=== PATIENT | male | born 1960 | race Caucasian/White ===

== ENCOUNTER 2020-03-18 03:48 | Outpatient (CLI) | payer OTHER, SELFPAY ==
[2020-03-18 08:55] LABS: Absolute Basophil Count 0.03 k/cumm (0.0-0.2); Absolute Eosinophil Count 0.13 k/cumm (0.0-0.7); Absolute Lymphocyte Count 1.16 k/cumm (1.2-3.4); Absolute Monocyte Count 0.44 k/cumm (0.11-0.7); Absolute Neutrophil Count 1.69 k/cumm (1.2-6.7); Basophils % 0.9; Eosinophils % 3.8; HCT 42.2 % (40.0-50.0); HGB 14.1 g/dL (13.5-17.5); Lymphocytes % 33.6; Mean Corp. HGB Concentration 33.4 g/dL (32.0-36.0); Mean Corpuscular Hemoglobin 29.6 pg (27.0-33.0); Mean Corpuscular Volume 88.7 fL (80-95); Mean Platelet Volume 10.8 fL (8.0-11.0); Monocytes % 12.8; Neutrophils % 48.9; Platelet Count 180 x1000/uL (130-400); RBC 4.76 m/cumm (4.50-6.00); White Blood Cell Count 3.45 k/cumm (4.4-10.8)
[2020-03-18 09:13] LABS: Hemoglobin A1C 5.4 % (3.8-5.6)
[2020-03-18 09:59] LABS: ALT 25 U/L (16-63); AST 18 U/L (15-37); Alkaline Phosphatase 55 U/L (46-116); Anion Gap 5.1 mmol/L (3-11); BUN 20 mg/dL (7-18); Bilirubin, Total 0.7 mg/dL (0.2-1.0); CO2 28.9 mmol/L (21.0-32.0); CREATININE 0.87 mg/dL (0.70-1.30); Calcium 8.6 mg/dL (8.5-10.1); Calculated LDL 69 mg/dL (<100); Chloride 105 mmol/L (98-107); Cholesterol 129 mg/dL (<200); Glucose 94 mg/dL (74-106); HDL Cholesterol 48 mg/dL (40-60); Potassium 4.5 mmol/L (3.5-5.1); Sodium 139 mmol/L (136-145); Total Protein 6.4 g/dL (6.4-8.2); Triglyceride 61 mg/dL (<150)
[2020-03-18 19:00] LABS: Vitamin D 25 Total 89.5 ng/ml (30-100)
== END 2020-03-18 04:08 ==
PROVIDERS: PCP Physician Assistant; Visit Provider Physician Assistant
DX: Z00.00 Encounter for general adult medical examination without abnormal findings (principal); E55.9 Vitamin D deficiency, unspecified; R73.9 Hyperglycemia, unspecified; E78.5 Hyperlipidemia, unspecified
CPT/HCPCS: 36415; 80053; 80061; 82306; 83036; 85025

== ENCOUNTER 2020-07-04 17:45 | Emergency (ER) | payer OTHER, SELFPAY ==
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
[2020-07-04 17:49] VITALS: BP 138/112; PULSE 81; RESP 18; TEMP 36.6; O2SAT 99
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
[2020-07-04 18:59] VITALS: BP 135/99; PULSE 81; RESP 18; TEMP 36.6; O2SAT 99
== END 2020-07-04 19:00 | disposition home or self-care (01) ==
PROVIDERS: Emergency Provider Student in an Organized Health Care Education/Training Program; PCP Physician Assistant
DX: S20.211A Contusion of right front wall of thorax, initial encounter (principal); S50.01XA Contusion of right elbow, initial encounter; Y04.2XXA Assault by strike against or bumped into by another person, initial encounter; Y99.0 Civilian activity done for income or pay
CPT/HCPCS: 99283; 71046; 71100

== ENCOUNTER 2020-12-28 12:48 | Emergency (ER) | payer OTHER, SELFPAY ==
--- NOTE | 2020-12-28 12:51 | ED.GENADUL_ITS ---
Discharge Plan Disposition Patient Disposition: HOME Condition: Stable Discharge Details Clinical Impression: Swelling of right upper extremity, Traumatic ecchymosis of right upper arm Primary Care Provider: Cesia Ely V ED Provider: Grisel Toledo Home Meds and New Rx's Prescriptions: Continued amlodipine 5 mg Tablet 5 mg PO DAILY RF: 0 carvedilol 3.125 mg Tablet 3.125 mg PO DAILY RF: 0 famotidine 20 mg Tablet 20 mg PO DAILY RF: 0 simvastatin 20 mg Tablet 20 mg PO .QHS RF: 0 naproxen sodium 220 mg Tablet 220 mg PO BID RF: 0 cholecalciferol (vitamin D3) [Vitamin D3] 25 mcg (1,000 unit) Tablet 1 PO DAILY RF: 0 Discharge Instructions Instructions: Ecchymosis (ED) Additional Instructions: Your exam and history is most consistent with injury to the bicep tendon. This may be a partial tear. The swelling and bruising is likely associated with dependent position as well as the remaining so active in the setting of an acute injury. I would like for you to rest and elevate the extremity as much as possible. You may continue with Tylenol and/or anti-inflammatory as needed for discomfort. You will have an outpatient ultrasound tomorrow to evaluate for potential DVT. After discussing treatment options at this time, we have decided to have you take daily aspirin, you received your dosing for today while here. If you develop fever/chills, chest pain, shortness of breath or other new/worsening symptoms please seek care urgently once again. Otherwise, please follow up with orthopedics. Call tomorrow to schedule follow up appointment. 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 Reports that 1 week ago he was pulling himself up into a truck when he felt a sudden pop and onset of pain near the proximal bicep. Had notable ecchymosis and swelling in this region subsequently. Also is currently recovering from a partial rotator cuff tear. He reports that he continues to be very physically active including running 10 miles a day and physically active while at work. Has noted continued increased swelling that has spread distally as well ecchymosis. He reports that he has been using Aleve twice daily. This is not been sufficient in alleviating his discomfort On exam, patient appears nontoxic. Vital signs are stable. He is noted to be in any respiratory distress and denies any chest pain or shortness of breath. Patient does have notable swelling and ecchymosis to the medial aspect of the right upper extremity extending from the axilla inferiorly towards the wrist. His compartments are soft. And is pink with brisk capillary refill. Distal pulses. Good range of motion of the fingers. He denies any numbness or tingling. No palpable cord, no venous congestion Patient and I discussed concerns at length. I do not see any clinical evidence at this time to suggest DVT. However, given his increased swelling this is on the differential. We are unable to obtain an ultrasound at this time. Given the patient's large amount of swelling and bruising, I feel that D-dimer would be falsely elevated. We will obtain x-ray given the acute onset of this discomfort to evaluate for unlikely fracture. Do not see any evidence to suggest compartment syndrome. No evidence to suggest arterial compromise. No evidence of infection. Rather, his progression of symptoms is more consistent with him being so physically active in the setting of a recent injury and having increased swelling as a result. The spreading appears to be associated with heavy work load and dependent nature his arm is typically in. FINDINGS: Bones/joints: There is tiny calcification along the greater tuberosity which may indicate a calcific tendinitis. Mild degenerative changes are present in the glenohumeral joint with tiny osteophyte formation on the humeral head and inferior glenoid. There is narrowing of the AC joint. No fracture or other acute abnormalities are seen. Soft tissues: Normal. IMPRESSION: No acute abnormalities are seen in the right shoulder. Patient received tylenol. Pain improving, not clear if this is from alphonse rest and elevation or the tylenol. We discussed remaining concern for potential DVT although my suspicion is fairly low. We discussed anticoagulation, risks/benefits, he would prefer to use ASA at this time and hold off of formal anticoagulation. Plan for outpatient DVT study tomorrow. He needs to rest and elevate. return precautions were discussed. He will f/u here after US. Referral to ortho has been placed. Advised off from work x 1 week and no running. All of his quesitons and concerns were addressed, he is in agreement with this plan. HPI General Mode of arrival: ambulatory . Date/Time Provider Initiated Documentation: 12/28/20 12:51 . Limitations to Documentation: no limitations . Information obtained by: patient and RN notes reviewed . History of Present Illness 60 year old M presents to the emergency department with the chief complaint of RUE swelling, bruising and pain, described as severe, with intensity rated at 10. Quality is described as aching and other (throbbing), and is localized to the right and upper extremity. Patient extremity. Patient started experiencing this week(s) (1) and it has been intermittent. Immobilization improves symptom(s), Movement worsens symptoms (patient is very active, worse when busy at work) . Patient notes no other symptoms.; denies chest pain, fever/chills, shortness of breath and weakness. Patient did receive the following treatments prior to arrival, NSAID Related Data Home Medications Medication Instructions Recorded Confirmed amlodipine 5 mg PO DAILY 12/28/20 12/28/20 carvedilol 3.125 mg PO DAILY 12/28/20 12/28/20 cholecalciferol (vitamin D3) 1 PO DAILY 12/28/20 [Vitamin D3] famotidine 20 mg PO DAILY 12/28/20 12/28/20 naproxen sodium 220 mg PO BID 12/28/20 12/28/20 simvastatin 20 mg PO .QHS 12/28/20 12/28/20 Allergies Allergy/AdvReac Type Severity Reaction Status Date / Time amoxicillin Allergy Intermediate Skin Rash Unverified 12/29/20 11:00 strawberry Allergy Mild Skin Rash Unverified 12/29/20 11:00 hornets Allergy Severe Uncoded 12/29/20 11:00 General KACEY: 3 Review of Systems Constitutional Constitutional: Reports as per HPI, Denies chills, Denies fever(s), Denies headache(s) and Denies weakness ENT Ears, Nose, Mouth, and Throat: Denies headache(s) Cardiovascular Cardiovascular: Reports as per HPI Respiratory Respiratory: Reports as per HPI and Denies cough Musculoskeletal Musculoskeletal: Reports as per HPI and Denies tingling Integumentary/Breasts Skin/Breast: Reports as per HPI, Denies rash and Denies wounds Neurologic Neurologic: Reports as per HPI, Denies headache(s), Denies tingling, Denies paresthesias and Denies weakness [facility] Social History Smoking/Tobacco Use Status: Former Tobacco Use Smoking risk assessment performed?: Yes Alcohol Intake: current Alcohol Intake frequency: holidays/special occasions only Drug use: Never Substance use type: does not use Do you feel safe at home: Yes Do you feel safe in your relationship?: Yes Exam Const General: cooperative, healthy appearing, comfortable, no acute distress, well developed and well groomed Nutritional Appearance: average body habitus and well nourished Orientation: alert and awake Resp Effort & Inspection: normal respiratory effort, able to speak in complete sentences and no respiratory distress Cardio Rate: regular rate Rhythm: regular rhythm Skin General skin exam: ecchymosis Trauma: no lacerations or abrasions Neuro General: patient alert and patient awake Cognition: normal cognition Speech: speech normal Gait: normal gait Motor: muscle tone normal throughout Sensory Exam: no sensory deficits noted Extrem Right upper extremity: full ROM, normal capillary refill, shoulder/upper arm Details: normal to inspection, tenderness Location: over the biceps tendon (no chanel or obvisou deformity), swelling Location: other (medial upper arm into forearm, spares hand), axillary nerve sensory function normal, normal ROM and ecchymosis; no deformity, elbow/forearm Details: normal to inspection, swelling (appears to be spreading from injury at prox humerus), normal ROM, ecchymosis (anterior) and distal pulses intact; no tenderness, no crepitus and no deformity, wrist Details: normal to inspection, swelling, normal ROM, ecchymosis (anterior), normal vascular exam and radial pulse present; no tenderness and no crepitus and hand Details: normal to inspection, normal capillary refill, neuromotor exam normal, neurosensory exam normal, vascular exam Details: radial pulse present and normal capillary refill, normal ROM of fingers and no swelling; no tenderness, no swelling and no ecchymosis; abnormal to inspection (swelling and ecchymosis from axilla to wrist anteriomedially) and no cyanosis Psych Appearance: grossly normal and well kempt Mental Status: mental status grossly normal Speech and Movement: speech and movement normal
[2020-12-28 12:53] VITALS: BP 144/70; PULSE 60; RESP 16; TEMP 36.5; O2SAT 98
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
[2020-12-28] MEDS: Acetaminophen 500 MG TAB 1000 MG PO (13:35)
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
== END 2020-12-28 13:00 | disposition home or self-care (01) ==
PROVIDERS: Emergency Provider Physician Assistant; PCP Physician Assistant
DX: S40.021A Contusion of right upper arm, initial encounter (principal); R22.31 Localized swelling, mass and lump, right upper limb; X50.3XXA Overexertion from repetitive movements, initial encounter; S46.201A Unspecified injury of muscle, fascia and tendon of other parts of biceps, right arm, initial encounter
CPT/HCPCS: 99283; 73030

== ENCOUNTER 2020-12-29 10:54 | Emergency (ER) | payer OTHER, SELFPAY ==
[2020-12-29 10:58] VITALS: BP 150/80; PULSE 55; RESP 20; TEMP 36.5; O2SAT 100
--- NOTE | 2020-12-29 11:12 | ED.GENADUL_ITS ---
Discharge Plan Disposition Patient Disposition: HOME Discharge Details Clinical Impression: Swelling of right upper extremity Primary Care Provider: Cesia Ely V ED Provider: Jeri Vera Home Meds and New Rx's Prescriptions: No Action amlodipine 5 mg Tablet 5 mg PO DAILY RF: 0 carvedilol 3.125 mg Tablet 3.125 mg PO DAILY RF: 0 famotidine 20 mg Tablet 20 mg PO DAILY RF: 0 simvastatin 20 mg Tablet 20 mg PO .QHS RF: 0 naproxen sodium 220 mg Tablet 220 mg PO BID RF: 0 cholecalciferol (vitamin D3) [Vitamin D3] 25 mcg (1,000 unit) Tablet 1 PO DAILY RF: 0 Discharge Instructions Additional Instructions: Ice, elevate as much as possible, may wrap with compression neck and arm sleeve Tylenol and ibuprofen for pain control Should your swelling increase or your pain worsen recommend a repeat ultrasound in 1 week Follow-up with orthopedics at your scheduled appointment No heavy lifting or repetitive motion Stand Alone Forms: Work Release Discharge Data Discharge Date/Time-TO BE ENTERED AT DEPARTURE: 12/29/20 11:50 Medical Decision Making Ultrasound upper extremity negative for DVT per radiology interpretation in my review Patient discharged home with orthopedic follow-up and supplied a sling with frozen shoulder precautions discussed No evidence of fracture clinically, no DVT on ultrasound, likely bicep tendon strain or tear Differential Diagnosis Differential Diagnosis: Fracture, DVT, strain, contusion Medical Records Medical records reviewed: Yes I reviewed the patient's medical records. HPI General Mode of arrival: ambulatory . Date/Time Provider Initiated Documentation: 12/29/20 11:12 . Information obtained by: patient . HPI Narrative: 60-year-old male presents for evaluation of his ultrasound which she had today. Patient reportedly was evaluated yesterday for swollen right arm. He reportedly injured his arm a week prior to arrival and has had some worsening pain and swelling which is why he presents down to the emergency room. He denies any chest pain or shortness of breath. He denies any history of coagulopathy. He is otherwise reportedly healthy Related Data Home Medications Medication Instructions Recorded Confirmed amlodipine 5 mg PO DAILY 12/28/20 12/28/20 carvedilol 3.125 mg PO DAILY 12/28/20 12/28/20 cholecalciferol (vitamin D3) 1 PO DAILY 12/28/20 [Vitamin D3] famotidine 20 mg PO DAILY 12/28/20 12/28/20 naproxen sodium 220 mg PO BID 12/28/20 12/28/20 simvastatin 20 mg PO .QHS 12/28/20 12/28/20 Allergies Allergy/AdvReac Type Severity Reaction Status Date / Time amoxicillin Allergy Intermediate Skin Rash Unverified 12/29/20 11:00 strawberry Allergy Mild Skin Rash Unverified 12/29/20 11:00 hornets Allergy Severe Uncoded 12/29/20 11:00 General Stated Complaint: Recheck KACEY: 5 PFSH Social History Smoking/Tobacco Use Status: Former Tobacco Use Smoking risk assessment performed?: Yes Alcohol Intake: current Alcohol Intake frequency: holidays/special occasions only Drug use: Never Substance use type: does not use Do you feel safe at home: Yes Do you feel safe in your relationship?: Yes Exam Const General: cooperative and comfortable Extrem Other: Right upper extremity with ecchymosis and edema mostly to the right upper arm, neurovascularly intact, no evidence of compartment syndrome, distal pulses intact, sensation intact distally Course Vital Signs Vital signs: Vital Signs Temperature 36.5 C 12/29/20 10:58 Pulse 55 L 12/29/20 10:58 Respiratory Rate 20 12/29/20 10:58 Blood Pressure 150/80 H 12/29/20 10:58 Pulse Oximetry 100 12/29/20 10:58 Temperature 36.5 C 12/29/20 10:58 Temperature Source Skin 12/29/20 10:58 Pulse 55 L 12/29/20 10:58 Respiratory Rate 20 12/29/20 10:58 Blood Pressure 150/80 H 12/29/20 10:58 Blood Pressure Position Sitting 12/29/20 10:58 Pulse Oximetry 100 12/29/20 10:58 Oxygen Delivery Method Room Air 12/29/20 10:58 Oxygen Flow Rate 0 12/29/20 10:58 Pain Level 0 12/29/20 10:58
== END 2020-12-29 11:50 | disposition home or self-care (01) ==
PROVIDERS: Emergency Provider Physician Assistant; PCP Physician Assistant
DX: R60.0 Localized edema (principal); S40.021A Contusion of right upper arm, initial encounter; X50.3XXA Overexertion from repetitive movements, initial encounter

== ENCOUNTER 2021-01-28 02:32 | Outpatient (CLI) | payer OTHER, SELFPAY ==
--- NOTE | 2021-01-28 06:30 | DI.MRI_ITS ---
Exam(s) MR UPPER EXTREMITY RT WO MR UPPER JOINT RT WO EXAM: MR UPPER JOINT RT WO and MR upper extremity RT without CLINICAL HISTORY: Traumatic rotator cuff biceps tear/rupture,s46.011a,s46.211a. TECHNIQUE: Multiplanar multisequence MRI was performed. COMPARISON: CR,XR XR SHOULDER RT COMPLETE 2+V from 12/28/2020 MR MR UPPER EXTREMITY RT WO from 01/28/2021 MR MR UPPER EXTREMITY RT WO from 01/28/2021 FINDINGS: BONES: There is no fracture or contusion pattern. JOINTS: Gqkw-ri-dbkdaosr degenerative changes are seen at the acromioclavicular joint. There is supe rior subluxation of the humeral head consistent with a rotator cuff tear. Please see below for compl ete details. TENDONS: Supraspinatus: There is a full-thickness tear of the supraspinatus tendon with retraction to the leve l of the glenohumeral joint. A portion of the tendon is displaced posteriorly and lies deep to the i nfraspinatus muscle and tendon. Infraspinatus: Unremarkable. Subscapularis: There is a full-thickness tear through the subscapularis tendon with retraction to the level of the glenohumeral joint. Teres Minor: Unremarkable. Biceps and [place]: There is a full-thickness tear of the long head of the biceps with retraction of t he tendon to the level of the proximal humeral metaphysis. There is an area of hemorrhage within the biceps muscle with associated intramuscular edema. MUSCLES: Please see the above discussion for complete details. There is mild fatty atrophy of the carlton praspinatus and teres minor muscles. GLENOID LABRUM: Unremarkable on this noncontrast examination. SOFT TISSUES: Unremarkable. LIGAMENTS: Unremarkable. OTHER: There is fluid seen in the subacromial bursa consistent with the patient's full-thickness rota tor cuff tear. Distally, muscles show normal signal and size. The triceps tendon and biceps tendons distally are in tact. No soft tissue mass or focal fluid collection is identified. There is hyperintense signal see n in the radial collateral ligament suspicious for partial tear or tendinosis. The ulnar collateral ligament complex appears unremarkable. There is normal marrow signal of the visualized distal humeru s, proximal radius and ulna. IMPRESSION: 1. Full-thickness tear of the supraspinatus tendon with retraction to the level of the glenohumeral j oint. A component of the tendon lies deep to the infraspinatus muscle and tendon posteriorly. 2. Full-thickness tear of the subscapularis tendon with retraction to the level of the glenohumeral j oint. 3. Full-thickness tear of the long head of the biceps with retraction to the level of the proximal hu meral metaphysis. 4. Intramuscular hemorrhage in edema within the biceps. 5. Partial tear versus tendinosis of the radial collateral ligament of the elbow. DATA REPOSITORY:
== END 2021-01-28 02:52 ==
PROVIDERS: PCP Physician Assistant; Visit Provider Student in an Organized Health Care Education/Training Program
DX: M25.511 Pain in right shoulder (principal); S46.011A Strain of muscle(s) and tendon(s) of the rotator cuff of right shoulder, initial encounter; S46.211A Strain of muscle, fascia and tendon of other parts of biceps, right arm, initial encounter; R60.0 Localized edema
CPT/HCPCS: 73218; 73221

== ENCOUNTER → 2022-07-09 00:49 | Outpatient (CLI) | payer OTHER, SELFPAY ==
--- OUTSIDE RECORDS SUMMARY | 2022-07-09 00:52 | XMS_ITS | Clinical Summary ---
:[address] [facility] Address [address] [place] [address] Care Team Providers Name Role Phone Unknown, Provider Primary Care Provider Social History Tobacco Use Types Packs/Day Years Used Date Smoking Tobacco: Never Assessed Sex Assigned at Date Recorded Not on file Plan of Treatment Not on file Care Teams Machine Assembler Relationship Specialty Start Date End Date Unknown, Provider, PCP - General 11/17/12
--- OUTSIDE RECORDS SUMMARY | 2022-07-09 00:52 | XMS_ITS | Encounter Summary ---
:1960 Author Organization [facility] [place] [address] Care Team Providers Name Role Phone Azalea Madrigal APRN, Nicole Primary Care Provider [phone] Encounter Details Date Type Department Care Team Description 07/07/2020 Hospital Encounter Laboratory [facility] [place] [place] [address] Social History Tobacco Use Types Packs/Day Years Used Date Never Assessed Sex Assigned at Date Recorded Not on file documented as of this encounter Medications at Time of Discharge Medication Sig Dispensed Refills Start Date End Date carvedilol (COREG) 25 mg tablet 0 09/2009 amlodipine (NORVASC) 10 mg tablet 0 simvastatin (ZOCOR) 10 mg tablet 0 09/2009 pantoprazole (PROTONIX) 40 mg tablet 0 03/30/2010 celecoxib (CELEBREX) 200 mg capsule 0 03/30/2010 documented as of this encounter Plan of Treatment Not on filedocumented as of this encounter Procedures Procedure Name Priority Date/Time Associated Diagnosis Comme nts COVID-19 PCR Routine 07/07/2020 2:16 PM Results f or this EST procedure are i n the results section . documented in this encounter Results COVID-19 PCR (07/07/2020 2:16 PM EST) [facility] Method Time Signature SARS-CoV-2 Not Detected Not Detected CHETNA MÉNDEZ [facility] Comment: This result should be interpreted in com bination with the clinical observations, patient history and epidem iological information in making a final diagnosis. For testing of asymptomatic i ndividuals, assay performance characteristics and clinical utility hav e not been evaluated. Testing for SARS-CoV-2 (Severe acute respiratory syn drome coronavirus 2, formerly known as 2019 novel coronavirus or 2019-nCoV) to aid in the diagnosis of COVID-19 is performed using the [employer] DOROTHY S-CoV-2 Assay as authorized by the FDA Emergency Use Authorization (EUA). This EUA assay is intended for In-vitro Diagnostic (IVD) use with respiratory sp ecimens such as nasopharyngeal swabs collected from individuals during the ac [place] phase of infection. This assay is performed based on the instructions for use provided by [employer] and additional guidance provided by CDC and FDA. Testing is performed in the [facility] Laboratory within the Department of Pathology and Laboratory Medicine at [facility], certified under the Clinical Laboratory Improvement Amendments of 1988 (CLIA), 42 U.S.C. 263a, to perform high complexi ty tests. Assay performance has been verified according to clinical laborator y regulatory requirements for use with specimens collected from individuals porsche pected of COVID-19. Test results are provided above. A result of ? Not Detected? indicates that the viral RNA target is not present above the limit of detect ion, but does not preclude SARS-CoV-2 infection. False negative results may oc cur if a specimen is improperly collected, transported or handled; if am plification inhibitors are present; or if inadequate numbers of viral particles are present in the specimen. When a diagnostic test is negative, the possibi lity of a false negative result should be considered in the context of a patien t? s recent exposures and the presence of clinical signs and symptoms consisten t with COVID-19. A result of ? Detected? indicates that RNA from SARS-CoV-2 was d etected and the patient is infected. As required or requested by public health [facility], positive specimens may be sent for additional testing. Positive an d negative predictive values for this test are highly dependent on disease pre valence. A result of ? Invalid? indicates that neither the viral RNA tar gets nor the internal control target was detected. An invalid result suggests the presence of inhibitors. Recollection and re-testing is recommend ed in the case of an invalid result. CDC COVID-19 criteria for testing on hum an specimens and clinical management guidance information are available at th e CDC Coronavirus Disease 2019 (COVID-19) webpage under ? Information for Healthcare Professionals? (https://www.cdc.gov/coronavirus/2019-nc ov/hcp/index.html) Additional information about this and ot her EUA tests can be found in provider and patient fact sheets at the following FDA website: https://www.fda.gov/medical-devices/dkvdengtcdl-erieopv-8687-lsczc-02-nxtpolwcl- dec-xigbpzliwiyccq-ahvijpk-devices/wyiyl-rjnvfdlegsf-ipba SARS-Cov-2 RNA Source Nasal [facility] Specimen Anatomical Collection Method Collection Time Receive d Time (Source) Location / / Volume Laterality Specimen from Other / Unknown 07/07/2020 2:16 PM 07/09 1:09 nose (specimen) EST AM EST Resulting Agency Comment Spec In Lab Pranav Chun APRN MICROBIOLOGY - GENERAL ORDER BECKY Performing Organization Address City/State/[place] [address] documented in this encounter Visit Diagnoses Not on filedocumented in this encounter Care Teams Peanut Blancher Relationship Specialty Start Date End Date Tawanna Tristan APRN PCP - General 07/21/10 documented as of this encounter
--- OUTSIDE RECORDS SUMMARY | 2022-07-09 00:52 | XMS_ITS | Clinical Summary ---
:1960 Author Organization [facility] [place] [address] Care Team Providers Name Role Phone Azalea Madrigal APRN, Nicole Primary Care Provider [phone] Allergies Active Allergy Reactions Severity Noted Date Comments Amoxicillin Trihydrate CIS - Rash Cis Free Text Allergy Hymeno ptera (Bee) Stings. CIS - local reaction Bledsoe CIS - Rash Medications Medication Sig Dispensed Refills Start Date End Date Status carvedilol (COREG) 25 mg tablet 0 03/30/20 10 Active amlodipine (NORVASC) 10 mg tablet 0 2009 Active simvastatin (ZOCOR) 10 mg tablet 0 010 Active pantoprazole (PROTONIX) 40 mg tablet 0 09/2009 Active celecoxib (CELEBREX) 200 mg capsule 0 09/2009 Active Immunizations Name Administration Dates Next Due Influenza Vaccine, Whole 06/21/2008 Social History Tobacco Use Types Packs/Day Years Used Date Never Assessed Sex Assigned at Date Recorded Not on file Plan of Treatment Health Maintenance Due Date Last Done Comments Covid-19 Vaccine (#1) 02/11/1961 HIV screen 1978 Hepatitis C Screening 1978 Tdap adult 1979 Tetanus vaccine 1979 Colonoscopy 2005 Zoster vaccine (1 of 2) 2010 Advance Directive 2015 Influenza (Flu) vaccine (1 of 1 - Influenza standard 04/29/2022 06/21/2008 series) Care Teams Home Housekeeper Relationship Specialty Start Date End Date Tawanna Tristan APRN PCP - General 07/21/10
--- OUTSIDE RECORDS SUMMARY | 2022-07-09 00:52 | XMS_ITS | Encounter Summary ---
:1960 Author Organization [facility] Address [address] [place] [address] Care Team Providers Name Role Phone Unknown, Provider Primary Care Provider Encounter Details Date Type Department Care Team Description 11/16/2012 Results Only [facility] Rupesh Beavers MD [phone] [address] [facility] [address] [place] [address] (Wo rk) Social History Tobacco Use Types Packs/Day Years Used Date Smoking Tobacco: Never Assessed Sex Assigned at Date Recorded Not on file documented as of this encounter Plan of Treatment Not on filedocumented as of this encounter Procedures Procedure Name Priority Date/Time Associated Diagnosis Comme [facility] SURGICAL PATHOLOGY Routine 11/16/2012 15:27 Resul ts for this EDT procedure are i n the results section. documented in this encounter Results SURGICAL PATHOLOGY (11/16/2012 15:27 EDT) Component Value Ref Test Analysis Performed At [facility] Method Time Signature Pathology SURGICAL PATHOLOGY REPORT [place] [place] Report: Reports generated via electronic interface contain dorene l data; TONY SORENSEN however they are lacking the format of the original report. Caution should be taken when reading/interpreting unformatte d reports. Name: ? FILI ROGER ? Accession #: ? [id number] ? : ? 1960 (Age: 52) ??M ? Collect Date: ? 11/16/2012 ? Location: ? [facility] ? Receive Date: ? 11/17/2012 ? Provider: IRON BEAVERS MD Copy to: [place] ? Final Pathologic Diagnosis: A. ?Duodenum, biopsy: 1. ?Duodenal mucosa with no specific pathologic features. 2. ? No villous blunting or increased intraepithelial ly mphocytes. B. ?Stomach, antrum, biopsy: 1. ?Antral-type mucosa with reactive gastropath y. 2. ? No Helicobacter pylori-like microorgani sms identified on H&E-stained sections. ?? C. ?Esophagus, biopsy: 1. ?Squamocolum miguel a junctional type mucosa with chronic, focally active inflammation and reactive epithelial changes. 2. ? Negative for intestinal metaplasia. ?? Document reviewed and electronically signed by: MARILYN GANT MD Report ??Date: 11/20/2012 16:26 By the signature above, the attending physician certifies th at he/she has personally conducted a gross and/or microscopic examin ation of the described specimens and rendered or confirmed the above diagnosis. Specimen(s) Received: A. ?Duodenal biopsy B. ? Gastric antrum C. ? Esophagus Clinical History: ? R/O H. pylori, R/O Madden's; clinical diagnosis code : 530.81 Gross Description: ? Received in formalin labelled Fili Roger A-duodenal biopsy is a fragment of aquino soft tissue which measures 0.3 x 0.2 x 0.1 cm. ??Submitted entirely as (A1). Received in formalin labelled Fili Roger and Mary Jane-gas tric antrum is a fragment of aquino soft tissue which measures 0.2 x 0.2 x 0.2 c m. ??Submitted entirely as (B1). Received in formalin labelled Kaan, G lenn R and C-esophagus is a portion of aquino soft tissue which measures 0.2 x 0.2 x 0.2 cm. Subm itted entirely as (C1). ??(Dr. Ha)/[facility] End of Report Specimen Anatomical Collection Method Collection Time Receive d Time (Source) Location / / Volume Laterality 11/16/2012 15:27 11/17/2012 EDT 15:27 EDT Rupesh Beavers MD PATHOLOGY ORDERABLES Performing Organization Address City/State/ZIP Code Phon e Number [facility] [address] [place] [address] SERVICES [facility] [address] [place] [address] documented in this encounter Visit Diagnoses Not on filedocumented in this encounter Care Teams Crude Tester Relationship Specialty Start Date End Date Unknown, Provider, PCP - General 11/17/12 documented as of this encounter
--- NOTE | 2022-07-09 09:41 | DI.RAD_ITS ---
Exam(s) XR CHEST 2V PA LATERAL EXAM: XR CHEST 2V PA LATERAL CLINICAL HISTORY: CARDIOMEGALY I51.7. TECHNIQUE: 2D digital imaging was performed. COMPARISON: CR,XR XR RIBS RT W PA LAT CHEST from 07/04/2020 FINDINGS: 2 views: Heart size is normal. The mediastinum is not widened. Lungs are clear. No infiltrates nor pleural effusions. IMPRESSION: No acute pulmonary findings.No significant change compared to 07/04/2020 DATA REPOSITORY: RADIATION DOSE DELIVERED:
== END ==
PROVIDERS: PCP Physician Assistant; Visit Provider Physician Assistant
DX: I51.7 Cardiomegaly (principal)
CPT/HCPCS: 71046

== ENCOUNTER → 2022-07-12 03:22 | Outpatient (CLI) | payer OTHER, SELFPAY ==
--- NOTE | 2022-07-12 15:00 | DI.US_ITS ---
APPROVED REPORT EXAM: Comprehensive 2D, Doppler, and color-flow Echocardiogram Patient Location: Out-Patient Independent Marketing Consultant: Samaria Parker RDCS (AE) Indications: Cardiomegaly, Abnormal EKG, SOB Other Information Study Quality: Adequate Conclusion Normal left ventricular wall thickness and chamber size. Estimated ejection fraction is 60%. Wall m otion is normal Normal right ventricular size and systolic function Both atria are normal in size There is no structural or hemodynamically significant valvular disease Mildly dilated ascending aorta measuring 3.54 cm Estimated right ventricular systolic pressure is 27 mmHg Wall motion Left Ventricle The left ventricle is normal size. The left ventricular systolic function is normal. The left ventric ular ejection fraction is within the normal range. There is normal left ventricular wall thickness. T here is normal LV segmental wall motion. There is no ventricular septal defect visualized. LVEF is 60 %. Right Ventricle The right ventricle is normal size. The right ventricular systolic function is normal. The RVSP is 27 .1 mmHg. Atria The left atrium size is normal. The right atrium size is normal. The interatrial septum is intact wit h no evidence for an atrial septal defect. Aortic Valve The aortic valve is normal in structure. Aortic valve is trileaflet. There is no aortic valvular sten osis. No aortic regurgitation is present. Mitral Valve The mitral valve is normal in structure. No evidence of mitral valve stenosis. Trace mitral regurgita tion. Tricuspid Valve The tricuspid valve is normal in structure. There is no tricuspid valve stenosis. Trace to mild tricu spid regurgitation. Pulmonic Valve The pulmonary valve is normal in structure. There is no pulmonic valvular stenosis. Trace pulmonic re gurgitation. Great Vessels The aortic root is normal in size. The ascending aorta is mildly dilated. IVC is normal in size and c ollapses >50% with inspiration. Pericardium There is no pericardial effusion. 2D Dimensions IVSD d PLAX 0.85 cm M: 0.6-1.2 LV Vol A2C d MOD 180.6 mL LVPW d PLAX 0.83 cm M: 0.6 - 1.2 LV Vol A4C d MOD 144.7 mL LVID d PLAX 4.99 cm M: 4.2 - 5.8 LA vol/ BSA A2C s A-L 48.3 mL/m2 LVDs 3.30 cm M: 2.5 - 4.0 LA vol/ BSA A4C s A-L 39.0 mL/m2 Ao Root d 3.38 cm M: 3.1 - 3.7 LA Vol/ BSA Biplane s A-L 44.1 mL/m2 RA Area A4C 14.93 cm2 LA Area A4C s MOD 21.80 cm2 RA Vol/ BSA A4C s A-L 22.8 mL/m2 LA Area A2C s MOD 23.89 cm2 Ao Asc Diam d 3.54 cm M: 2.6 - 3.4 LV EF A4C MOD 60.9 % LV EF Teichholz 62.1 % LV EF A2C MOD 60.0 % LVEF (Schuler's) 59.81 % M: 52 - 72 LV EF Biplane MOD 59.8 % LV Volume 128.06 mL M: 62 - 150 SV 99.66 mL LV Volume Index 68.84 mL/m2 M: 34 - 74 SV Index 53.52 mL/m2 LV Vol Biplane MOD 166.6 mL FS 33.55 % M-Mode TAPSE 1.91 cm (M/F) >1.7 LV Diastology MV E' medial 0.081 (>0.07 m/s) E/A Ratio 0.9 LV E/e MED 8.50 (<14) MV E Vmax 0.69 (0.4-1.3 m/s) MV E' lateral 0.128 (>0.1 m/s) MV A Vmax 0.80 (0.4-1.3 m/s) LV E/e LAT 5.35 (<14) MV E/A Ratio 0.85 MV E/E' medial 8.51 MV E/E' lateral 5.39 Aortic Valve LVOT Area 2.81 cm2 AoV Area Vmax 2.25 cm2 LVOT Vmax 1.47 m/s AoV Area/ BSA (Vmax) 1.21 cm2/m2 LVOT Mean Ambrose. 0.89 m/s YAMILETH Mean Ambrose. 2.20 cm2 LVOT Peak Grad 8.7 mmHg YAMILETH Mean Ambrose. Index 1.18 cm2/m2 LVOT Mean Grad 3.8 mmHg LVOT VTI 0.277 m LVOT Diam s 1.85 cm AoV Vmax 1.84 m/s Velocity Ratio 0.79 AoV Mean Ambrose. 1.14 m/s AoV Peak Grad 13.6 mmHg LVOT SV 77.82 mL AoV Mean Grad 6.4 mmHg AoV VTI 0.322 m AoV Area VTI 2.41 cm2 AoV Area/ BSA (VTI) 1.30 cm/m2 Mitral Valve MV DT 278 (160-240 msec) MV PHT 81 msec MV Area PHT 2.73 cm2 MV VTI 0.384 m MV Area VTI 2.03 (4.0-6.0 cm2) Pulmonary Valve PV Vmax 1.02 (0.5-1.5 m/s) RVOT Peak Gr. 1.87 mmHg PV Peak Grad 4.1 mmHg RVOT Mean Gr. 1.05 mmHg PV Mean Grad 2.1 mmHg RVOT VTI 0.161 m PV VTI 0.193 m RVOT Vmax 0.68 m/s Tricuspid Valve TR Peak Grad 24.1 mmHg TR Vmax 2.46 m/s RA Pressure 3.00 mmHg RVSP (TR) 27.1 mmHg
== END ==
PROVIDERS: PCP Physician Assistant; Visit Provider Physician Assistant
DX: I42.9 Cardiomyopathy, unspecified (principal); R94.31 Abnormal electrocardiogram [ECG] [EKG]; R06.02 Shortness of breath
CPT/HCPCS: 93306

== ENCOUNTER 2022-09-06 01:45 | Outpatient (CLI) | payer OTHER, SELFPAY ==
--- NOTE | 2022-09-06 09:00 | ETT_ITS ---
APPROVED REPORT Exam: Exercise Treadmill Patient Location: Out-Patient Room/Bed: Stress Nurse: Domenica Alba RN Ordering Provider:MARINA BATISTA, Contact Number: BMI: 33.00 Baseline Rhythm: Sinus Bradycardia Comment: PVC's Indications: Shortness of breath Medical History Medical History: HTN, HLD Cardiac Medications: Simvistatin, Carvedilol, Omeprazole, Famotidine, Magnesium Allergies: Amoxicillin, Strawberries Cardiac Risk Factors: +HTN, +HLD Previous Cardiac Procedures: None Pretest Chest Pain Characteristics: None Exercise History: Physically active Physical Disabilities: None Lung Sounds: LCTA Heart Sounds: Regular Stress Test Details Test: Exercise stress testing was performed using a Eliezer protocol. Rest Stress HR Resting HR Supine: 51 bpm Max Heart Rate (APMHR): 158 bpm Resting HR Standin bpm Target HR (85% APMHR): 134 bpm Max HR Achieved: 167 bpm % of APMHR: 106 Recovery HR: 58 bpm HR response to stress: Accelerated HR response to stress BP Resting BP Supine: 126/78 mmHg Resting BP Standin/80 mmHg Max BP: 152/76 mmHg Recovery BP: 142/84 mmHg BP response to stress: Normal blood pressure response to stress. ECG Resting ECG: Sinus Bradycardia Ectopy: PVC's Stress ECG: Sinus Rhythm, LBBB ST Change: Upsloping ST depression Lead(s): II, III, aVF Stage: [address] Deviation: 2 mm Arrhythmia: PVC's Comment: Rate related left bundle branch block Recovery ECG: Sinus Rhythm Recovery ST Change: No significant ST segment changes noted Recovery Arrhythmia: PVC's Clinical Reason for Termination: Target HR Achieved, New LBBB Stress Symptoms: Brief palpitation Exercise duration: 8 min26 sec Highest Stage Reached: Stage 3: 3.4 mph at 14% grade. Exercise capacity: 10.16 METs Angina Score: None Hare Treadmill Score: -2.0 Rate Pressure Product: 48545 Stress ECG Conclusion 1. The resting electrocardiogram showed voltage for left ventricular hypertrophy 2. Patient exercised on the Eliezer protocol and completed a workload of 10.16 METS 3. Accelerated heart rate response to exercise. The patient achieved greater than 100% of predicted heart rate for age 4. Electrocardiographically the test was notable for a rate related left bundle branch block, which r endered the test nondiagnostic 5. Sporadic PVCs were seen 6. Suggest repeat with imaging if clinically indicated Hare Treadmill Score is -2.0 which is Moderate risk. Stress Test Summary STAGE Time (mins) Speed (mph) Grade (%) HR BP SpO2 SYMPTOMS METS Supine 51 126/78 Standing 63 138/80 1 3 1.7 10 83 142/84 4.5 2 6 2.5 12 102 152/76 7 3 9 3.4 14 150 palpitation 10 1 min recovery 67 148/80 3 min recovery 63 120/70 6 min recovery 58 142/84 Patient was on the treadmill during stage 3 of his test when he went from a sinus tachycardia with PV C's to Sinus tachycardia w/ a right bundle branch block. Patient stated he had a second of palpitat ions and then felt completely fine. Otherwise asymptomatic with new right bundle branch block. Test w as stopped when patients heart rate quickly continued to accelerate despite being asymptomatic.Alexandr hope was in recovery under 2 minutes when his rhythm returned to a normal sinus rhythm with PVC's. Dr.Do mar was called and consulted about what appeared to be a new, rate related bundle branch block for thi s patient. was comfortable with patient being discharged, he was asymptomatic through most of the test and vital signs stable at time of discharge.
== END 2022-09-06 02:00 ==
LOC: DI 01:46
PROVIDERS: PCP Physician Assistant; Visit Provider Physician Assistant
DX: R06.02 Shortness of breath (principal)
CPT/HCPCS: 93017

== ENCOUNTER 2022-10-05 01:46 | Outpatient (CLI) | payer OTHER, SELFPAY ==
--- NOTE | 2022-10-05 | DI.NM_ITS ---
APPROVED REPORT Exam: Exercise Treadmill Patient Location: Out-Patient Room/Bed: Stress Nurse: Wilma Monge RN Ordering Provider:MARINA BATISTA, Contact Number: BMI: 25.84 Baseline Rhythm: Sinus Bradycardia Indications: LBBB, abnormal result cardiovascular function study Medical History Medical History: Hypertension, hyperlipidemia Cardiac Medications: Simvastatin, carvediolol, amlodipine, famotidine Allergies: Amoxicillin, strawberries, hornets Cardiac Risk Factors: Hypertension, hyperlipidemia Previous Cardiac Procedures: None Pretest Chest Pain Characteristics: None Exercise History: Physically active Physical Disabilities: None Lung Sounds: Clear to auscultation, Clear to auscultation Heart Sounds: Regular Stress Test Details Test: Exercise stress converted to pharmacologic stress due to failure to obtain a diagnostic stress test. Reason for pharmacologic stress test: changed from exercise stress test due to inability to reach t arget heart rate. Nuclear Acquisition: Rest Tc-99m/Stress Tc-99m 1 day Rest Isotope: Tc-99m Sestamibi. Dose: 10.9 Date: 10/05/2022 Injection Time: 0850 Stress Isotope: Tc-99m Sestamibi. Dose: 31.8 Date: 10/05/2022 Injection Time: 1026 HR Resting HR Supine: 42 bpm Max Heart Rate (APMHR): 158.756053 bpm Resting HR Standin bpm Target HR (85% APMHR): 134.298112 bpm Max HR Achieved: 103 bpm % of APMHR: 65.19 Recovery HR: 69 bpm HR response to stress: Blunted HR response to stress Comment: Carvedilol held for 24 hrs prior to testing BP Resting BP Supine: 150/80 mmHg Resting BP Standin/72 mmHg Max BP: 170/88 mmHg Recovery BP: 144/80 mmHg BP response to stress: Normal blood pressure response to stress. ECG Resting ECG: Sinus Bradycardia Ectopy: Occasional PVCs Stress ECG: Sinus Rhythm, Sinus Tachycardia ST Change: No significant ST segment changes noted Arrhythmia: Occasional PVCs Recovery ECG: Sinus Rhythm Recovery ST Change: No significant ST segment changes noted Recovery Arrhythmia: Occasional PVCs Clinical Reason for Termination: RN stopped exercise test due to inability to reach THR- converted to pharmaco logic test Stress Symptoms: General Fatigue, Chest pain- twinge Exercise duration: 9 min34 sec Highest Stage Reached: Stage 4: 4.2 mph at 16% grade. Exercise capacity: 10.66 METs Angina Score: Non-Limiting Hare Treadmill Score: 7.3 Rate Pressure Product: 60096 Stress ECG Conclusion 1. The resting electrocardiogram showed voltage for left ventricular hypertrophy 2. Patient underwent testing using a combination of low-level exercise and pharmacologic stress with regadenoson. He did achieve a workload of 10.66 METS and 65% of predicted heart rate for age 3. The electrocardiographic portion of the test was nondiagnostic due to inadequate heart rate 4. See MPI report Hare Treadmill Score is 7.3 which is Low risk. Stress Test Summary STAGE Time (mins) Speed (mph) Grade (%) HR BP SpO2 SYMPTOMS METS Supine 42 150/80 Standing 50 148/72 98% 1 3 1.7 10 63 158/80 97% 4.5 2 6 2.5 12 75 170/88 98% 7 3 9 3.4 14 91 N/A 98% Brief twinge to chest. 10 4 12 4.2 16 94 98% 15 1 min post Lexiscan injection 83 140/78 98% SOB 3 min post Lexiscan injection 69 144/80 98% SOB resolved Patient held carvedilol for 24 hrs per ordering provider instructions. When patient reached 4th stage of exercise HR remained in low 90s. Exercise stress converted to pharmacologic stress at 9:45 of Bru ce protocol due to inability to reach THR. Pt maintained low level exercise at 2.0 mph and 0% grade d uring Lexiscan administration. Pt tolerated pharmacologic stress well. MPI Conclusion Normal myocardial perfusion. There is no ischemia or evidence of prior infarction Ejection fraction is within the range of normal with normal wall motion Radiologist Interpretation Radiologist agrees with Director Television's Interpretation. Radiologist Interpretation by: Mark Monroe MD Interpretation Date/Time: 10/07/2022 11:04:49
[2022-10-05] MEDS: Regadenoson 0.4 MG/5 ML SYR IVP (10:54)
== END 2022-10-05 02:06 ==
PROVIDERS: PCP Physician Assistant; Visit Provider Physician Assistant
DX: I44.7 Left bundle-branch block, unspecified (principal)
CPT/HCPCS: 78452; 93017; J2785